=== PATIENT | male | born 1990 | race Caucasian/White ===

== ENCOUNTER 2017-02-21 09:59 | Outpatient (CLI) | payer OTHER | END 2017-02-21 10:03 | disposition home or self-care (01) | LOC: LAB 09:59 | DX: H16.142 Punctate keratitis, left eye (principal) ==

== ENCOUNTER 2020-08-02 06:00 | Day surgery (SDC) | payer OTHER | END 2020-08-02 12:50 | disposition home or self-care (01) | LOC: CIR.AMB 06:00 | PROVIDERS: ATTEND Surgery | DX: K80.00 Calculus of gallbladder with acute cholecystitis without obstruction (principal); Z20.822 Contact with and (suspected) exposure to COVID-19 ==